=== PATIENT | female | born 1965 | race African-American/Black ===

== ENCOUNTER 2017-05-04 08:20 | Outpatient (CLI) | payer OTHER | END 2017-05-04 08:21 | disposition home or self-care (01) | LOC: BICMAMMO 08:20 | PROVIDERS: ATTEND Obstetrics & Gynecology | DX: Z12.31 Encounter for screening mammogram for malignant neoplasm of breast (principal) | CPT/HCPCS: 77063; 77067 ==

== ENCOUNTER 2017-07-13 14:49 | Outpatient (CLI) | payer OTHER ==
--- NOTE | 2017-07-13 16:13 | ULT ---
NECK ULTRASOUND: Date: 07/13/17 HISTORY: Palpable abnormality in left neck region. FINDINGS: Real-time imaging of the area of the palpable finding shows a large cyst which actually involves the lower pole of the left lobe of the thyroid. It measures 2.4 x 3.1 cm in size. The right lobe of the t hyroid measures 1.4 x 1.7 x 4.7 cm and the left lobe measures 1.9 x 2.5 x 5.3 cm. There are some tiny nodules seen in both lobes of the thyroid. IMPRESSION: Large cyst which appears to arise from the lower pole of the left lobe of the thyroid. There are othe r smaller thyroid nodules present. POS: [facility]
== END 2017-07-13 14:50 | disposition home or self-care (01) ==
LOC: ULT 14:49
PROVIDERS: ATTEND Family Medicine
DX: R22.1 Localized swelling, mass and lump, neck (principal); E04.2 Nontoxic multinodular goiter
CPT/HCPCS: 76536

== ENCOUNTER 2018-02-08 14:05 | Outpatient (CLI) | payer OTHER ==
--- NOTE | 2018-02-08 16:31 | ULT ---
THYROID ULTRASOUND: 02/08/18 COMPARISON: 07/13/17 HISTORY: Thyroid cyst. TECHNIQUE: Multiplanar bal scale and color doppler images were obtained in a thyroid ultrasound. FINDINGS: There are multiple small scattered nodules and cysts in both lobes of the thyroid. There is a large c yst in the lower pole of the left thyroid lobe measuring 2.0 cm in greatest dimension. None of the mo re solid appearing lesions are greater than 1 cm in size. All of the lesions are well circumscribed w ithout suspicious microcalcifications. The thyroid lobe measures 5.1 and 5.8 cm in length on the righ t and left, respectively. IMPRESSION: Multinodular multicystic thyroid. POS: [facility]
== END 2018-02-08 14:06 | disposition home or self-care (01) ==
LOC: BICULT 14:05
PROVIDERS: ATTEND Otolaryngology Plastic Surgery within the Head & Neck
DX: E04.2 Nontoxic multinodular goiter (principal)
CPT/HCPCS: 76536

== ENCOUNTER 2019-06-30 13:57 | Outpatient (CLI) | payer OTHER ==
--- NOTE | 2019-06-30 14:35 | ULT ---
Renal sonogram HISTORY: Microscopic hematuria. FINDINGS: Right kidney is 9.7 cm length normal appearance. Left kidney is 10.3 cm. Small cyst at the inferior pole 1.3 cm. No hydronephrosis. Urinary bladder shows bilateral ureteral jets. No focal abnormality. IMPRESSION : Small left renal cyst. No acute abnormalities are demonstrated.
== END 2019-06-30 13:58 | disposition home or self-care (01) ==
LOC: ULT 13:57
PROVIDERS: ATTEND Family Medicine
DX: R31.29 Other microscopic hematuria (principal); E04.2 Nontoxic multinodular goiter; N28.1 Cyst of kidney, acquired
CPT/HCPCS: 76770

== ENCOUNTER 2020-05-10 12:59 | Outpatient (CLI) | payer OTHER ==
--- NOTE | 2020-05-10 14:59 | ULT ---
ULTRASOUND THYROID: DATE: 05/10/2020. HISTORY: ICD-10: E04.1, thyroid cyst. COMPARISON: 02/25/2018. FINDINGS: Isthmus 0.2 cm AP. Right lobe: 4.5 x 1.4 x 1.8 cm. Left lobe: 4.8 x 2.3 x 1.8 cm. No nodule identified in right lobe or isthmus. Left upper pole: 0.8 x 1.0 x 0.5 cm spongiform nodule: benign. Inferior to that, a 0.6 x 0.7 x 0.5 cm spongiform nodule, benign. At lower pole of left lobe, a 1.4 x 1.4 x 1.8 cm simple cyst. Benign. No FNA or followup recommended. No interval change overall. IMPRESSION: 1. Dominant simple cyst at lower pole of left lobe. 2. Two small benign spongiform nodules in the left upper pole. 3. No interval change overall. 4. All findings are Benign. POS: [facility]
== END 2020-05-10 13:00 | disposition home or self-care (01) ==
LOC: BICULT 12:59
PROVIDERS: ATTEND Otolaryngology Plastic Surgery within the Head & Neck
DX: E04.1 Nontoxic single thyroid nodule (principal); E04.2 Nontoxic multinodular goiter
CPT/HCPCS: 76536

== ENCOUNTER 2020-12-09 07:31 | Outpatient (CLI) | payer OTHER ==
[2020-12-09] MEDS ORDERED: Magnevist 469MG/ML 20 ML VIAL ONE (12:31)
== END 2020-12-09 07:32 | disposition home or self-care (01) ==
LOC: BICMRI 07:31
PROVIDERS: ATTEND Orthopaedic Surgery Hand Surgery
DX: M85.642 Other cyst of bone, left hand (principal); M79.89 Other specified soft tissue disorders
CPT/HCPCS: A9579